=== PATIENT | male | born 1955 | race Caucasian/White ===

== ENCOUNTER 2021-06-26 17:37 | Emergency (ER) | payer MEDICARE ==
[~2021-06-26] VITALS: Ht 175.3 cm; Wt 104.3 kg
[2021-06-26] MEDS ORDERED: DELSYM30 MG/5 ML PO (18:50)
[2021-06-26] MEDS ORDERED: FLONASE 0.05% N16 GM (18:50)
== END 2021-06-26 20:16 | disposition home or self-care (01) ==
LOC: ER1 17:37
DX: U07.1 COVID-19 (principal)
CPT/HCPCS: 99283; M0245; U0002